=== PATIENT | female | born 1950 | race Asian ===

== ENCOUNTER 2021-11-14 05:00 | Day surgery (SDC) | payer OTHER ==
[2021-11-10 14:25] VITALS: BMI 22.2
[2021-11-14 08:52] VITALS: RESP 16
[2021-11-14 10:41] VITALS: BP 118/79; PULSE 54
[2021-11-14 13:27] VITALS: TEMP 97.8
== END 2021-11-14 11:20 | disposition home or self-care (01) ==
LOC: JASU-ENDO 05:00
PROVIDERS: ATTEND Student in an Organized Health Care Education/Training Program
PROC: 0DB78ZX Excision of Stomach, Pylorus, Via Natural or Artificial Opening Endoscopic, Diagnostic (ICD-10-PCS; 2021-11-14)
PROC: 0DB68ZX Excision of Stomach, Via Natural or Artificial Opening Endoscopic, Diagnostic (ICD-10-PCS; 2021-11-14)
PROC: 0DB38ZX Excision of Lower Esophagus, Via Natural or Artificial Opening Endoscopic, Diagnostic (ICD-10-PCS; 2021-11-14)
PROC: 0DB98ZX Excision of Duodenum, Via Natural or Artificial Opening Endoscopic, Diagnostic (ICD-10-PCS; principal; 2021-11-14 08:00)
DX: K29.00 Acute gastritis without bleeding (principal); K55.20 Angiodysplasia of colon without hemorrhage
CPT/HCPCS: 88305-TC; 88342-TC